=== PATIENT | female | born 1945 | race Caucasian/White ===

== ENCOUNTER 2023-10-06 09:28 | Outpatient (CLI) | payer MEDICARE ==
[2023-10-06 09:42] LABS: BASOPHILS % (AUTO) 0.2 %; EOSINOPHILS # (AUTO) 0.1 10^3/uL (0.0-0.7); LYMPHOCYTES # (AUTO) 1.5 10^3/uL (1.5-3.5); MEAN CORPUSCULAR HEMOGLOBIN 28.3 pg (27.0-31.0); MEAN CORPUSCULAR HGB CONC 33.3 g/dL (32.0-36.0); MEAN PLATELET VOLUME 9.3 fL (7.9-10.8); MONOCYTES # (AUTO) 0.3 10^3/uL (0.0-1.0); MONOCYTES % (AUTO) 6.4 %; NEUTROPHILS # (AUTO) 3.1 10^3/uL (1.5-6.6); NEUTROPHILS % (AUTO) 62.2 %; PLT - PLATELET COUNT 288 10^3/uL (130-450); RED BLOOD COUNT 4.94 10^6/uL (4.20-5.40); RED CELL DISTRIBUTION WIDTH 13.3 % (12.0-15.0)
[2023-10-06 09:56] LABS: CALCIUM 9.9 mg/dL (8.5-10.3); CREATININE 0.7 mg/dL (0.6-1.3); POTASSIUM 4.2 mmol/L (3.5-4.5)
== END 2023-10-06 09:29 | disposition home or self-care (01) ==
LOC: LAB 09:28
PROVIDERS: ATTEND Physician Assistant
DX: Z51.81 Encounter for therapeutic drug level monitoring (principal); E53.8 Deficiency of other specified B group vitamins; K21.9 Gastro-esophageal reflux disease without esophagitis
CPT/HCPCS: 36415; 80048; 82607; 82746; 85025

== ENCOUNTER 2023-11-30 14:44 | Outpatient (CLI) | payer MEDICARE ==
--- NOTE | 2023-12-01 16:54 | DEXA Report ---
PROCEDURE: Dexa Spine and/or Hip INDICATIONS: POST MENOPAUSAL TECHNIQUE: Dual energy x-ray absorptiometry (DXA) was performed on a [employer]. Regions measur ed are the AP Spine, femoral neck, and if needed forearm. COMPARISON: None FINDINGS: Lumbar Spine: Bone Mineral Density: 1.179 g/cm/cm,T score: 0. Left Femoral Neck: Bone Mineral Density: 0.786 g/cm/cm, T score: -1.8. Left Hip: Bone Mineral Density: 0.809 g/cm/cm,T score: -1.6. FRAX risk factors: 10 year risk of major osteoporotic fracture: 13.2% major osteoporotic fracture = hip, clinical vertebral, proximal humerus, distal forearm 10 year risk of hip fracture: 3.4% (T score greater or equal to -1.0: NORMAL) (T score from -1.1 to -2.4: OSTEOPENIA) (T score less than or equal to -2.5 to: OSTEOPOROSIS) Impression: By WHO criteria, this patient has low bone density (osteopenia). Patients with diagnosis of osteoporosis or osteopenia should have regular bone mineral density assess ment. For those eligible for Medicare, routine testing is allowed once every 2 years. Testing frequ ency can be increased for patients who have rapidly progressing disease or for those who are receivin g medical therapy to restore bone mass. Reviewed by: Santo Ponce MD on 12/01/2023 4:53 PM PDT Approved by: Santo Ponce MD on 12/01/2023 4:53 PM PDT Station ID: [id number]
== END 2023-11-30 14:45 | disposition home or self-care (01) ==
LOC: DI 14:44
PROVIDERS: ATTEND Physician Assistant
DX: M85.89 Other specified disorders of bone density and structure, multiple sites (principal); Z78.0 Asymptomatic menopausal state